=== PATIENT | male | born 1995 | race Caucasian/White ===

== ENCOUNTER 2021-03-13 08:13 | Emergency (ER) | payer SELFPAY ==
[~2021-03-13] VITALS: Ht 175.3 cm; Wt 127.0 kg
[2021-03-13] MEDS ORDERED: ONDANSETRON 4MG ODT PO ONE (09:15)
[2021-03-13] MEDS ORDERED: MORPHINE SULFATE 10 MG/ML CPJ IV ONE (09:15)
[2021-03-13] MEDS ORDERED: KETOROLAC 60MG/2ML VIAL IM ONE (09:15)
[2021-03-13] MEDS ORDERED: MORPHINE SULFATE 10 MG/ML CPJ IM ONE (09:30)
[2021-03-13] MEDS ORDERED: DEXAMETHASONE 10 MG/ML VIAL IV ONE (10:45)
[2021-03-13] MEDS ORDERED: MED4 MT (10:48)
[2021-03-13] MEDS ORDERED: IBUP-2028 MT (10:48)
[2021-03-13] MEDS ORDERED: CYCL10TA7 MT (10:48)
[2021-03-13] MEDS ORDERED: HYDR-4001 MT (10:48)
[2021-03-13 11:03] VITALS: BP 137/68
== END 2021-03-13 11:04 | disposition home or self-care (01) ==
LOC: ER 08:39
DX: M54.5 Low back pain (principal); M54.16 Radiculopathy, lumbar region; Z79.899 Other long term (current) drug therapy
CPT/HCPCS: 96372; 96374; 99284; J1100; J1885; J2270; Q0162